=== PATIENT | female | born 1985 | race Two or more races ===

== ENCOUNTER 2016-09-12 20:55 | Emergency (ER) | payer OTHER ==
[~2016-09-12] VITALS: Ht 152.4 cm; Wt 51.7 kg
[2016-09-12 21:33] LABS: CONDITION Y; Hematocrit 42.1 % (36.0-46.0); Hemoglobin 14.5 g/dL (12.2-16.2); Mean Corpuscular Hemoglobin 29.5 pg (28.0-32.0); Mean Corpuscular Hgb Conc. 34.4 g/dL (32.0-36.0); Mean Corpuscular Volume 85.7 fL (80.0-100.0); Mean Platelet Volume 9.1 fL (7.4-10.4); Platelet Count (auto) 249 10^3/uL (140-450); Red Cell Distribution Width 12.2 % (11.6-16.0); SUSPECT SEE PRINTOUT; White Blood Cell 6.4 10^3/uL (4.4-10.8)
[2016-09-12 21:36] LABS: Metamyelocytes % 0; Myelocytes % 0; Promyelocytes % 0; Reactive Lymphocytes 0
[2016-09-12 21:55] LABS: Urine Bilirubin Negative (Negative); Urine Color Yellow (Yellow); Urine Glucose Normal (Normal); Urine Mucus MODERATE (None Seen); Urine Nitrite Negative (Negative); Urine RBC 5 /hpf (0 - 4); Urine Squamous Epithelial Cell MOD /hpf (<5); Urine Urobilinogen Normal (Negative)
[2016-09-12 21:56] LABS: Urine Blood 2+ /uL (Negative); Urine Ketone 1+ (Negative)
[2016-09-12 22:04] LABS: Albumin 3.8 g/dL (3.4-5.0); Calcium 8.8 mg/dL (8.5-10.1)
[2016-09-12 22:10] LABS: BUN/Creatinine Ratio 14.9; Bilirubin, Total 0.4 mg/dL (0.2-1.0); Total Protein 7.2 g/dL (6.4-8.2)
[2016-09-12] MEDS ORDERED: ONDANSETRON ODT 4 MG TAB PO ONE (22:15)
[2016-09-12] MEDS ORDERED: ALUM & MAG HYDROX-SIMETH LIQ(MAALOX) 30 ML PO ONE (22:15)
[2016-09-12 22:18] LABS: Platelet Estimate Adequate
[2016-09-12 22:19] LABS: Ovalocytes FEW
[2016-09-12] MEDS ORDERED: DONNATAL 5ml ORAL Elix (BELLADONNA ALK-PHENOBARB) PO ONE (22:30)
[2016-09-12] MEDS ORDERED: LIDOCAINE VISCOUS 2% 15ML UD PO ONE (22:30)
[2016-09-13] MEDS ORDERED: cefTRIAXone 1GM/50ML D5W 50 ML IV ONE
[2016-09-13 01:22] VITALS: BP 108/63
== END 2016-09-13 01:38 | disposition home or self-care (01) ==
LOC: ER 20:58
DX: N30.01 Acute cystitis with hematuria (principal); K29.00 Acute gastritis without bleeding; Z88.2 Allergy status to sulfonamides
CPT/HCPCS: 36415; 76705; 80053; 81001; 84702; 85007; 85027; 96365; 99285; J0696; Q0162